=== PATIENT | male | born 1995 | race African-American/Black ===

== ENCOUNTER → 2017-08-20 | Outpatient (CLI) | payer OTHER | LOC: COL.PUL 12:48 | DX: R06.02 Shortness of breath (principal) | CPT/HCPCS: J7674 ==

== ENCOUNTER 2019-07-05 17:00 | Outpatient (RCR) | payer OTHER ==
[2019-04-12 14:39] VITALS: BP 111/81; PULSE 110; TEMP 98.8
[2019-04-12 16:45] VITALS: BP 110/60; PULSE 91; TEMP 98.9
--- NOTE | 2019-04-12 16:47 | NUR ---
Pt jose a xolair well. Pt observed for 2 hours after injection and discharged home per ambulation.
[2019-04-26 14:29] VITALS: BP 133/67; PULSE 101; TEMP 99
[2019-05-11 14:01] VITALS: BP 127/70; PULSE 76; TEMP 98
[2019-05-25 16:02] VITALS: BP 126/60; PULSE 76; TEMP 98.3
[2019-06-07 17:40] VITALS: BP 120/77; PULSE 72; TEMP 98.3
[2019-06-21 15:00] VITALS: BP 119/66; PULSE 78; TEMP 98.2
[~2019-07-05] VITALS: Ht 182.9 cm; Wt 96.7 kg
[2019-07-05 16:57] VITALS: BP 116/72; PULSE 73; TEMP 98.2
[~2019-07-05 17:00] MED LIST: RT ADVAIR HFA 2312 G IH; SPIRIVA RE2.5 MCG/Ac IH; ZYRTEC 10MG10 MG PO
== END 2019-07-11 | disposition still patient (30) ==
LOC: EUO
DX: Z79.899 Other long term (current) drug therapy (principal)
CPT/HCPCS: J2357

== ENCOUNTER 2019-09-02 15:30 | Outpatient (RCR) | payer OTHER ==
[2019-07-19 13:41] VITALS: BP 138/74; PULSE 80; TEMP 98
[2019-08-04 16:10] VITALS: BP 118/62; PULSE 76; TEMP 98.2
[2019-08-18 15:42] VITALS: BP 102/68; PULSE 82; TEMP 98
[~2019-09-02] VITALS: Ht 182.9 cm; Wt 100.0 kg
[2019-09-02 13:27] VITALS: BP 142/57; PULSE 85; TEMP 97.9
== END 2019-09-03 11:10 | disposition home or self-care (01) ==
LOC: EUO 15:30
DX: Z79.899 Other long term (current) drug therapy (principal)

== ENCOUNTER 2019-09-16 13:00 | Outpatient (RCR) | payer OTHER ==
[~2019-09-16] VITALS: Ht 182.9 cm; Wt 101.6 kg
[2019-09-16 13:32] VITALS: BP 124/78; PULSE 78; TEMP 98.4
--- NOTE | 2019-09-16 14:15 | NUR ---
Per pt report this is his last dose.[place].
== END 2019-09-16 14:17 | disposition home or self-care (01) ==
LOC: EUO 13:00
DX: J45.40 Moderate persistent asthma, uncomplicated (principal); Z79.899 Other long term (current) drug therapy